=== PATIENT | female | born 1960 | race African-American/Black ===

== ENCOUNTER 2019-06-06 04:00 | Emergency (ER) | payer MEDICAID ==
[~2019-06-06] VITALS: Ht 162.6 cm; Wt 82.0 kg
[2019-06-06 07:11] LABS: BASOPHILS % 1.7 % (0.0-2.0); EOSINOPHILS % 2.2 % (0.0-5.0); HEMATOCRIT. 41.9 % (36.0-48.0); HEMOGLOBIN. 13.3 g/dL (12.0-16.0); LYMPHOCYTES % 37.4 % (20.0-50.0); MEAN CORPUSCULAR HEMOGLOBIN 24.4 pg (28.0-32.0); MEAN CORPUSCULAR VOLUME 76.7 fL (81.0-99.0); MEAN PLATELET VOLUME 8.4 fl (7.4-10.4); MONOCYTES % 14.3 % (2.0-8.0); NEUTROPHILS % 44.4 % (40.0-76.0); PLATELET 165 x1000/uL (130-400); RED BLOOD CELL COUNT 5.46 mill/uL (4.2-5.4); RED CELL DISTRIBUTION WIDTH 14.7 % (11.6-14.6)
[2019-06-06 07:12] LABS: CHLORIDE 105 mEq/L (98-107)
[2019-06-06 07:16] LABS: ETHANOL BLOOD < 10 mg/dL
[2019-06-06 07:58] LABS: *AMPHETAMINES SCREEN URINE PRESUMTIVE POSITIVE (NEGATIVE); *BARBITURATES SCREEN URINE NEGATIVE (NEGATIVE); *BENZODIAZEPINES SCREEN URINE NEGATIVE (NEGATIVE); *COCAINE SCREEN URINE NEGATIVE (NEGATIVE)
[2019-06-06 07:59] LABS: METHADONE URINE SCREEN NEGATIVE (NEGATIVE); OPIATES URINE SCREEN NEGATIVE (NEGATIVE); PHENCYCLIDINE URINE SCREEN NEGATIVE (NEGATIVE)
[2019-06-06 08:07] LABS: CANNABINOID URINE SCREEN NEGATIVE (NEGATIVE)
[2019-06-06 09:00] VITALS: BP 114/78
== END 2019-06-06 09:00 | disposition home or self-care (01) ==
LOC: ER 04:00
DX: I11.0 Hypertensive heart disease with heart failure (principal); I50.9 Heart failure, unspecified
CPT/HCPCS: 36415; 71045; 80053; 80305; 80320; 83880; 84484; 85025; 93005; 99284; Z7610; G0480

== ENCOUNTER 2019-08-05 08:04 | Emergency (ER) | payer MEDICAID ==
[~2019-08-05] VITALS: Ht 160 cm; Wt 49.0 kg
[2019-08-05] MEDS ORDERED: METHYLPREDNISOLONE SOD SUCC 125 MG/2 ML VIAL IV STA (09:06)
[2019-08-05] MEDS ORDERED: MORPHINE SULFATE 4 MG/ML CPJ (NOT FOR IM USE) IV STA (09:06)
[2019-08-05] MEDS ORDERED: ONDANSETRON HCL 4MG/2ML INJ IV STA (09:06)
[2019-08-05] MEDS ORDERED: IPRATROPIUM/ALBUTEROL 0.5-3(2.5)MG/3ML NEB HHN ONE (09:15)
[2019-08-05] MEDS ORDERED: FUROSEMIDE 40MG/4ML VIAL IVP ONE (09:15)
[2019-08-05] MEDS ORDERED: LEVOFLOXACIN 750MG PREMIX 150 ML IV ONE (09:15)
[2019-08-05 09:25] LABS: BASOPHILS % 0.7 % (0.0-2.0); EOSINOPHILS % 2.2 % (0.0-5.0); HEMATOCRIT. 42.5 % (36.0-48.0); HEMOGLOBIN. 13.9 g/dL (12.0-16.0); LYMPHOCYTES % 29.9 % (20.0-50.0); MEAN CORPUSCULAR HEMOGLOBIN 25.2 pg (28.0-32.0); MEAN CORPUSCULAR VOLUME 77.2 fL (81.0-99.0); MEAN PLATELET VOLUME 8.7 fl (7.4-10.4); MONOCYTES % 12.9 % (2.0-8.0); NEUTROPHILS % 54.3 % (40.0-76.0); PLATELET 181 x1000/uL (130-400); RED CELL DISTRIBUTION WIDTH 15.5 % (11.6-14.6)
[2019-08-05 09:29] LABS: CHLORIDE 100 mEq/L (98-107)
[2019-08-05 09:32] LABS: INR 1.1; PARTIAL THROMBOPLASTIN TIME 27.5 sec (23.4-31.0)
[2019-08-05 09:36] LABS: ETHANOL BLOOD < 10 mg/dL
[2019-08-05 09:43] LABS: BG BASE EXCESS 1.5 mmol/L (-2.0-2.0); BG CARBOXYHEMOGLOBIN 1.3 % (0.5-1.5); BG DEOXYHEMOGLOBIN 1.3 % (0.0-5.0); BG HCO3 ACT 26.9 mmol/L (22.0-26.0); BG METHEMOGLOBIN 0.2 % (0.0-1.5); BG OXYGEN SATURATION 98.7 % (92.0-98.5); BG OXYHEMOGLOBIN 97.2 % (94.0-97.0); BG PCO2 45.5 mmHg (35.0-45.0); BG PO2 125.4 mmHg (75.0-100.0); BG SAMPLE SITE RIGHT RADIAL; BG TOTAL HEMOGLOBIN 13.9 g/dL (12.0-18.0)
[2019-08-05 11:29] LABS: CLARITY URINE CLEAR (CLEAR); COLOR URINE YELLOW (YELLOW); KETONES URINE NEGATIVE (NEGATIVE); LEUKOCYTE ESTERASE URINE NEGATIVE (NEGATIVE); NITRITE URINE NEGATIVE (NEGATIVE); OCCULT BLOOD URINE NEGATIVE (NEGATIVE); PROTEIN URINE NEGATIVE (NEGATIVE); SPECIFIC GRAVITY URINE 1.007 (1.005-1.030); UROBILINOGEN URINE 0.2 E.U./dL (0.2-1.0)
[2019-08-05] MEDS ORDERED: ASPIRIN 81MG TABLET PO STA (11:35)
[2019-08-05 11:40] LABS: *AMPHETAMINES SCREEN URINE PRESUMTIVE POSITIVE (NEGATIVE); *BARBITURATES SCREEN URINE NEGATIVE (NEGATIVE); *BENZODIAZEPINES SCREEN URINE NEGATIVE (NEGATIVE); *COCAINE SCREEN URINE NEGATIVE (NEGATIVE); CANNABINOID URINE SCREEN NEGATIVE (NEGATIVE); METHADONE URINE SCREEN NEGATIVE (NEGATIVE); OPIATES URINE SCREEN PRESUMTIVE POSITIVE (NEGATIVE); PHENCYCLIDINE URINE SCREEN NEGATIVE (NEGATIVE)
[2019-08-05 16:00] VITALS: BP 105/70
== END 2019-08-05 16:00 | disposition left against medical advice (07) ==
LOC: ER 08:04 → EDBEDREQTM 11:50 → EDBEDREQ 11:50 → ER 16:00 → ENRESERV 16:04 → CANRESERV 16:04 → CANBEDREQ 16:06
DX: T43.621A Poisoning by amphetamines, accidental (unintentional), initial encounter (principal); I50.9 Heart failure, unspecified; J44.9 Chronic obstructive pulmonary disease, unspecified; Y92.89 Other specified places as the place of occurrence of the external cause; Z88.0 Allergy status to penicillin
CPT/HCPCS: 36415; 36600; 71045; 80053; 80305; 80320; 81003; 82375; 82805; 83605; 83690; 83880; 84484; 85025; 85610; 85730; 87040; 87086; 93005; 93970; 94640; 96374; 96375; 99284; J1940; J1956; J2270; J2405; J2930; J7620; Z7610; G0480

== ENCOUNTER 2019-12-28 10:10 | Inpatient (IN) | payer MEDICAID ==
[~2019-12-28] VITALS: Ht 167.6 cm; Wt 70.9 kg
[2019-12-28] MEDS ORDERED: ALBUTEROL (0.083%) 2.5MG/3ML NEB HHN STA (11:37)
[2019-12-28] MEDS ORDERED: METHYLPREDNISOLONE SOD SUCC 125 MG/2 ML VIAL IV STA (11:37)
[2019-12-28] MEDS ORDERED: IPRATROPIUM BROMIDE (0.02%) 0.5MG/2.5ML NEB HHN STA (11:37)
[2019-12-28] MEDS ORDERED: FUROSEMIDE 40MG/4ML VIAL IV ONE (11:45)
[2019-12-28] MEDS ORDERED: NITROGLYCERIN OINT 1GM/INCH UDPKT TD ONE (11:45)
[2019-12-28] MEDS ORDERED: ASPIRIN 81MG TABLET PO ONE (11:45)
[2019-12-28 12:22] LABS: BASOPHILS % 0.4 % (0.0-2.0); EOSINOPHILS % 0.2 % (0.0-5.0); HEMATOCRIT. 41.3 % (36.0-48.0); HEMOGLOBIN. 12.7 g/dL (12.0-16.0); LYMPHOCYTES % 14.1 % (20.0-50.0); MEAN CORPUSCULAR HEMOGLOBIN 24.4 pg (28.0-32.0); MEAN CORPUSCULAR VOLUME 79.5 fL (81.0-99.0); MEAN PLATELET VOLUME 8.7 fl (7.4-10.4); MONOCYTES % 11.5 % (2.0-8.0); NEUTROPHILS % 73.8 % (40.0-76.0); PLATELET 226 x1000/uL (130-400); RED BLOOD CELL COUNT 5.19 mill/uL (4.2-5.4); RED CELL DISTRIBUTION WIDTH 15.9 % (11.6-14.6)
[2019-12-28 12:23] LABS: CHLORIDE 103 mEq/L (98-107)
[2019-12-28] MEDS ORDERED: CLONIDINE 0.1MG TABLET PO PRN (14:45)
[2019-12-28] MEDS ORDERED: ACETAMINOPHEN 325MG TABLET PO PRN (14:45)
[2019-12-28] MEDS ORDERED: IPRATROPIUM/ALBUTEROL 0.5-3(2.5)MG/3ML NEB HHN PRN (14:45)
[2019-12-28] MEDS ORDERED: ONDANSETRON HCL 4MG/2ML INJ IV PRN (14:45)
[2019-12-28 16:00] VITALS: BP 94/66
[2019-12-28 16:30] VITALS: BP 101/67
[2019-12-28] MEDS ORDERED: LEVO500T89 PO (16:40)
[2019-12-28] MEDS ORDERED: COR12 MT (16:40)
[2019-12-28] MEDS ORDERED: ENOXAPARIN 40MG/0.4ML SYR SUBCUT SCH (17:00)
[2019-12-28] MEDS ORDERED: FUROSEMIDE 40MG/4ML VIAL IV SCH (17:15)
[2019-12-28 20:00] VITALS: BP 115/65
[2019-12-28] MEDS: FUROSEMIDE 40MG/4ML VIAL IV SCH (21:37)
[2019-12-29] VITALS: BP 108/72
[2019-12-29 04:00] VITALS: BP 98/55
[2019-12-29 08:00] VITALS: BP 109/64
[2019-12-29] MEDS: FUROSEMIDE 40MG/4ML VIAL IV SCH (08:08)
== END 2019-12-29 11:30 | disposition left against medical advice (07) | DRG 133 ==
LOC: ER 10:10 → 5WST 14:29 → EDBEDREQ 14:31 → ENRESERV 14:44
PROVIDERS: ADMIT Internal Medicine; ATTEND Internal Medicine
DX: J96.00 Acute respiratory failure, unspecified whether with hypoxia or hypercapnia (principal); I50.22 Chronic systolic (congestive) heart failure; F17.210 Nicotine dependence, cigarettes, uncomplicated; F10.21 Alcohol dependence, in remission; J44.1 Chronic obstructive pulmonary disease with (acute) exacerbation; Z53.29 Procedure and treatment not carried out because of patient's decision for other reasons; Z87.440 Personal history of urinary (tract) infections; Z88.0 Allergy status to penicillin; Z79.899 Other long term (current) drug therapy
CPT/HCPCS: 36415; 71045; 80053; 83735; 83880; 84100; 84484; 85025; 93005; 93970; 94640; 99285; J1650; J1940; J2930; J7611

== ENCOUNTER 2021-11-20 15:35 | Inpatient (IN) | payer MEDICAID, OTHER ==
[~2021-11-20] VITALS: Ht 162.6 cm; Wt 88.5 kg
[~2021-11-20 15:35] MED LIST: COR12 MT; LEVO500T89 PO
[2021-11-20] MEDS ORDERED: MORPHINE SULFATE 4 MG/ML CPJ (NOT FOR IM USE) IV STA (15:51)
[2021-11-20] MEDS ORDERED: ONDANSETRON HCL 4MG/2ML INJ IV STA (15:51)
[2021-11-20] MEDS ORDERED: VANCOMYCIN 1 G PREMIX 200 ML IV SCH (16:00)
[2021-11-20] MEDS ORDERED: CLINDAMYCIN 600MG PREMIX 50 ML IV NR (18:15)
[2021-11-20] MEDS ORDERED: NITROGLYCERIN OINT 1GM/INCH UDPKT TD ONE (18:15)
[2021-11-20] MEDS ORDERED: ASPIRIN 81MG TABLET PO ONE (18:15)
[2021-11-20] MEDS ORDERED: FUROSEMIDE 40MG/4ML VIAL IV ONE (18:15)
[2021-11-20] MEDS ORDERED: CLINDAMYCIN 600 MG in DEXTROSE 5% WATER 50 ML IV ONE (18:15)
[2021-11-20 20:03] LABS: BASOPHILS % 0.6 % (0.0-2.0); HEMATOCRIT. 39.8 % (36.0-48.0); HEMOGLOBIN. 12.5 g/dL (12.0-16.0); LYMPHOCYTES % 8.4 % (20.0-50.0); MEAN CORPUSCULAR HEMOGLOBIN 24.3 pg (28.0-32.0); MEAN CORPUSCULAR VOLUME 77.4 fL (81.0-99.0); MEAN PLATELET VOLUME 8.8 fl (7.4-10.4); PLATELET 217 x1000/uL (130-400); RED BLOOD CELL COUNT 5.14 mill/uL (4.2-5.4); RED CELL DISTRIBUTION WIDTH 14.6 % (11.6-14.6)
[2021-11-20 20:04] LABS: CHLORIDE 95 mEq/L (98-107)
[2021-11-20 20:11] LABS: INR 1.3; PARTIAL THROMBOPLASTIN TIME 29.9 sec (23.4-31.0)
[2021-11-20 23:12] LABS: CLARITY URINE CLEAR (CLEAR); COLOR URINE DARK YELLOW (YELLOW); KETONES URINE TRACE (NEGATIVE); LEUKOCYTE ESTERASE URINE 1+ (NEGATIVE); NITRITE URINE NEGATIVE (NEGATIVE); OCCULT BLOOD URINE TRACE (NEGATIVE); PROTEIN URINE 1+ (NEGATIVE)
[2021-11-21 00:30] VITALS: BP 118/79
[2021-11-21] MEDS ORDERED: IPRATROPIUM/ALBUTEROL 0.5-3(2.5)MG/3ML NEB NEB PRN (00:45)
[2021-11-21] MEDS ORDERED: MAGNESIUM/ALUMINUM HYDROXIDE/SIMETHICONE 30ML UDC PO PRN (00:45)
[2021-11-21] MEDS ORDERED: CLONIDINE 0.1MG TABLET PO PRN (00:45)
[2021-11-21] MEDS ORDERED: CLINDAMYCIN 600 MG in DEXTROSE 5% WATER 50 ML IV ONE (00:45)
[2021-11-21] MEDS ORDERED: ONDANSETRON HCL 4MG/2ML INJ IV PRN (00:45)
[2021-11-21] MEDS ORDERED: ACETAMINOPHEN 325MG TABLET PO PRN (00:45)
[2021-11-21] MEDS ORDERED: GUAIFENESIN 200MG/10ML SUGAR FREE UDC PO PRN (00:45)
[2021-11-21] MEDS ORDERED: DOCUSATE SODIUM 100MG CAPSULE PO PRN (00:45)
[2021-11-21] MEDS ORDERED: NALOXONE HCL 0.4MG/ML VIAL IV PRN (01:45)
[2021-11-21] MEDS: HYDROCODONE/ACETAMINOPHEN 5/325MG TABLET PO PRN ×2 (02:57→19:57)
[2021-11-21] MEDS ORDERED: FURO-151 PO (04:36)
[2021-11-21] MEDS ORDERED: CLINDAMYCIN 600MG PREMIX 50 ML IV SCH (06:00)
[2021-11-21 06:53] LABS: BASOPHILS % 0.9 % (0.0-2.0); EOSINOPHILS % 0.3 % (0.0-5.0); HEMATOCRIT. 37.9 % (36.0-48.0); HEMOGLOBIN. 12.1 g/dL (12.0-16.0); LYMPHOCYTES % 14.4 % (20.0-50.0); MEAN CORPUSCULAR VOLUME 78.3 fL (81.0-99.0); MEAN PLATELET VOLUME 8.8 fl (7.4-10.4); MONOCYTES % 10.2 % (2.0-8.0); NEUTROPHILS % 74.2 % (40.0-76.0); PLATELET 205 x1000/uL (130-400); RED BLOOD CELL COUNT 4.84 mill/uL (4.2-5.4); RED CELL DISTRIBUTION WIDTH 14.8 % (11.6-14.6)
[2021-11-21 07:07] LABS: CREATINE KINASE MB FRACTION 4.7 ng/mL (0.5-3.6)
[2021-11-21 08:00] VITALS: BP 102/73
[2021-11-21] MEDS: FUROSEMIDE 40MG/4ML VIAL IV SCH ×2 (08:18→16:48)
[2021-11-21] MEDS: ENOXAPARIN 40MG/0.4ML SYR SUBCUT SCH (08:18)
[2021-11-21] MEDS ORDERED: VANCOMYCIN 750 MG PREMIX 150 ML IV SCH (09:00)
[2021-11-21 12:00] VITALS: BP 108/65
[2021-11-21] MEDS: VANCOMYCIN 1 G PREMIX 200 ML IV SCH (12:44)
[2021-11-21 15:52] VITALS: BP 101/66
[2021-11-21 16:54] LABS: CREATINE KINASE MB FRACTION 4.3 ng/mL (0.5-3.6)
[2021-11-21 19:56] VITALS: BP 100/68
[2021-11-22] VITALS: BP 92/59
[2021-11-22 04:00] VITALS: BP 105/60
[2021-11-22] MEDS: VANCOMYCIN 1 G PREMIX 200 ML IV SCH (05:53)
[2021-11-22] MEDS: HYDROCODONE/ACETAMINOPHEN 5/325MG TABLET PO PRN ×2 (05:54→22:44)
[2021-11-22 06:52] LABS: BASOPHILS % 0.7 % (0.0-2.0); EOSINOPHILS % 1.4 % (0.0-5.0); HEMATOCRIT. 35.1 % (36.0-48.0); HEMOGLOBIN. 10.8 g/dL (12.0-16.0); LYMPHOCYTES % 18.7 % (20.0-50.0); MEAN CORPUSCULAR HEMOGLOBIN 24.3 pg (28.0-32.0); MEAN CORPUSCULAR VOLUME 78.8 fL (81.0-99.0); MEAN PLATELET VOLUME 8.7 fl (7.4-10.4); MONOCYTES % 10.4 % (2.0-8.0); NEUTROPHILS % 68.8 % (40.0-76.0); PLATELET 190 x1000/uL (130-400); RED BLOOD CELL COUNT 4.45 mill/uL (4.2-5.4); RED CELL DISTRIBUTION WIDTH 14.5 % (11.6-14.6)
[2021-11-22 07:21] LABS: VANCOMYCIN TROUGH 12.5 ug/mL (5.0-10.0)
[2021-11-22 08:00] VITALS: BP 102/72
[2021-11-22] MEDS: FUROSEMIDE 40MG/4ML VIAL IV SCH ×2 (08:58→17:11)
[2021-11-22] MEDS: ENOXAPARIN 40MG/0.4ML SYR SUBCUT SCH (08:59)
[2021-11-22 12:00] VITALS: BP 97/61
[2021-11-22 16:00] VITALS: BP 98/66
[2021-11-22 20:00] VITALS: BP 101/70
[2021-11-23 04:00] VITALS: BP 94/66
[2021-11-23 08:25] VITALS: BP 98/69
[2021-11-23] MEDS: FUROSEMIDE 40MG/4ML VIAL IV SCH ×2 (09:18→18:14)
[2021-11-23] MEDS: ENOXAPARIN 40MG/0.4ML SYR SUBCUT SCH (09:19)
[2021-11-23] MEDS ORDERED: VANCOMYCIN 1 G PREMIX 200 ML IV SCH (12:00)
[2021-11-23 12:17] VITALS: BP 101/64
[2021-11-23 15:30] VITALS: BP 100/60
[2021-11-23] MEDS: HYDROCODONE/ACETAMINOPHEN 5/325MG TABLET PO PRN (18:26)
[2021-11-23 20:00] VITALS: BP 87/51
[2021-11-23] MEDS: NITROFURANTOIN 100MG M/M CAPSULE PO SCH (21:07)
[2021-11-24] VITALS: BP 100/69
[2021-11-24] MEDS: HYDROCODONE/ACETAMINOPHEN 5/325MG TABLET PO PRN (03:16)
[2021-11-24 04:00] VITALS: BP 101/67
[2021-11-24 06:24] LABS: EOSINOPHILS % 1.6 % (0.0-5.0); HEMATOCRIT. 34.3 % (36.0-48.0); LYMPHOCYTES % 16.8 % (20.0-50.0); MEAN CORPUSCULAR HEMOGLOBIN 25.5 pg (28.0-32.0); MEAN CORPUSCULAR VOLUME 79.5 fL (81.0-99.0); MEAN PLATELET VOLUME 8.5 fl (7.4-10.4); MONOCYTES % 11.8 % (2.0-8.0); NEUTROPHILS % 68.8 % (40.0-76.0); PLATELET 214 x1000/uL (130-400); RED BLOOD CELL COUNT 4.31 mill/uL (4.2-5.4)
[2021-11-24 07:02] LABS: CHLORIDE 97 mEq/L (98-107)
[2021-11-24 08:00] VITALS: BP 104/59
[2021-11-24] MEDS: ENOXAPARIN 40MG/0.4ML SYR SUBCUT SCH (08:34)
[2021-11-24] MEDS: FUROSEMIDE 40MG/4ML VIAL IV SCH ×2 (08:37→17:00)
[2021-11-24] MEDS: NITROFURANTOIN 100MG M/M CAPSULE PO SCH ×2 (08:37→20:41)
[2021-11-24] MEDS ORDERED: NITR100C11 PO (11:04)
[2021-11-24 12:00] VITALS: BP 92/61
[2021-11-24] MEDS ORDERED: MAGNESIUM 2 G PREMIX 50 ML IV NR (15:00)
[2021-11-24 16:00] VITALS: BP 97/70
[2021-11-24 20:04] VITALS: BP 108/72
[2021-11-24] MEDS: CARVEDILOL 3.125 MG TABLET PO SCH (20:19)
[2021-11-25 00:41] VITALS: BP 116/76
[2021-11-25 04:00] VITALS: BP 116/72
[2021-11-25] MEDS: HYDROCODONE/ACETAMINOPHEN 5/325MG TABLET PO PRN (06:36)
[2021-11-25 08:00] VITALS: BP 100/70
[2021-11-25] MEDS: FUROSEMIDE 40MG/4ML VIAL IV SCH (08:27)
[2021-11-25] MEDS: NITROFURANTOIN 100MG M/M CAPSULE PO SCH (08:27)
[2021-11-25] MEDS: ENOXAPARIN 40MG/0.4ML SYR SUBCUT SCH (08:28)
[2021-11-25] MEDS: CARVEDILOL 3.125 MG TABLET PO SCH (08:32)
[2021-11-25] MEDS ORDERED: COR3 PO (11:14)
[2021-11-25 11:55] VITALS: BP 101/68
[2021-11-25 12:19] VITALS: BP 101/68
== END 2021-11-25 15:06 | disposition home or self-care (01) | DRG 720 ==
LOC: ER 15:35 → 6WST 20:43 → EDBEDREQTM 21:04 → EDBEDREQ 21:04 → ENRESERV 22:00
PROVIDERS: ADMIT Internal Medicine; ATTEND Internal Medicine
DX: A41.9 Sepsis, unspecified organism (principal); J96.00 Acute respiratory failure, unspecified whether with hypoxia or hypercapnia; I50.23 Acute on chronic systolic (congestive) heart failure; E43 Unspecified severe protein-calorie malnutrition; I47.2 Ventricular tachycardia; I13.0 Hypertensive heart and chronic kidney disease with heart failure and stage 1 through stage 4 chronic kidney disease, or unspecified chronic kidney disease; I95.9 Hypotension, unspecified; I27.20 Pulmonary hypertension, unspecified; I42.9 Cardiomyopathy, unspecified; K74.60 Unspecified cirrhosis of liver; E66.01 Morbid (severe) obesity due to excess calories; R74.01 Elevation of levels of liver transaminase levels; Z20.822 Contact with and (suspected) exposure to COVID-19; J44.9 Chronic obstructive pulmonary disease, unspecified; N18.2 Chronic kidney disease, stage 2 (mild); M95.4 Acquired deformity of chest and rib; I34.0 Nonrheumatic mitral (valve) insufficiency; N39.0 Urinary tract infection, site not specified; Z87.891 Personal history of nicotine dependence; Z88.0 Allergy status to penicillin; Z68.33 Body mass index [BMI] 33.0-33.9, adult
CPT/HCPCS: 36415; 71045; 76700; 80048; 80053; 80061; 80202; 81003; 82550; 82553; 83605; 83735; 83880; 84145; 84443; 84484; 85025; 87077; 87186; 87426; 93005; 93306; 93970; 99285; C1893; J1650; J1940; J2270; J2405; J3370; J3475; J3490; J7060

== ENCOUNTER 2021-12-04 23:03 | Emergency (ER) | payer OTHER ==
[~2021-12-04] VITALS: Ht 172.7 cm; Wt 82.0 kg
[~2021-12-04 23:03] MED LIST changes: -COR12 MT; +COR3 PO; +FURO-151 PO; -LEVO500T89 PO; +NITR100C11 PO
[2021-12-04 23:06] VITALS: BP 121/73
[2021-12-05 03:14] LABS: HEMATOCRIT. 37.6 % (36.0-48.0); HEMOGLOBIN. 11.5 g/dL (12.0-16.0); MEAN CORPUSCULAR HEMOGLOBIN 24.4 pg (28.0-32.0); MEAN CORPUSCULAR VOLUME 79.6 fL (81.0-99.0); MEAN PLATELET VOLUME 8.7 fl (7.4-10.4); PLATELET 192 x1000/uL (130-400); RED BLOOD CELL COUNT 4.73 mill/uL (4.2-5.4); RED CELL DISTRIBUTION WIDTH 15.5 % (11.6-14.6)
[2021-12-05 03:19] LABS: CHLORIDE 97 mEq/L (98-107)
[2021-12-05] MEDS ORDERED: LEVOFLOXACIN 750MG PREMIX 150 ML IV ONE (04:30)
[2021-12-05] MEDS ORDERED: ASPIRIN 81MG TABLET PO ONE (04:30)
[2021-12-05] MEDS ORDERED: FUROSEMIDE 40MG/4ML VIAL IV ONE (04:30)
[2021-12-05 04:55] LABS: NUCLEATED RED BLOOD CELLS 21 /100 WBC; PLATELET ESTIMATE NORMAL
== END 2021-12-05 06:45 | disposition left against medical advice (07) ==
LOC: ER 23:03 → EDBEDREQ 12-05 05:15 → EDBEDREQTM 12-05 05:15 → ER 12-05 06:45 → CANBEDREQ 12-05 10:21
DX: I50.9 Heart failure, unspecified (principal); L03.116 Cellulitis of left lower limb; L03.115 Cellulitis of right lower limb; J44.9 Chronic obstructive pulmonary disease, unspecified; J45.909 Unspecified asthma, uncomplicated
CPT/HCPCS: 36415; 71045; 80053; 83880; 84484; 85025; 99284